=== PATIENT | male | born 1995 | race Two or more races ===

== ENCOUNTER 2018-09-21 02:57 | Emergency (ER) | payer SELFPAY ==
[~2018-09-21] VITALS: Ht 167.6 cm; Wt 77.1 kg
--- NOTE | 2018-09-21 03:00 | NUR ---
PT BIBRA 89 C/O ETOH W/ NAUSEA AND VOMITTING. PT AXO1. RESPIRATIONS EVEN AND UNLABORED. PT PUT ON THE CLIENT SERVICE ADMINISTRATOR AND PULSE OX. EMESIS PRESENT.
[2018-09-21] MEDS ORDERED: ONDANSETRON HCL/PF 4 MG/2 ML VIAL ONE (03:06)
[2018-09-21] MEDS ORDERED: ONDANSETRON HCL/PF 4 MG/2 ML VIAL IV ONE (03:30)
--- NOTE | 2018-09-21 03:55 | NUR ---
PT RESTING IN BED, NAD NOTED. WILL CONTINUE TO MONITOR.
--- NOTE | 2018-09-21 05:35 | NUR ---
Patient discharged to home in stable condition. Written and verbal after care instructions given. Patient verbalizes understanding of instruction. IV removed. Catheter intact and site benign. Pressure and 4x4 applied to site. No bleeding noted.
--- NOTE | 2018-09-21 05:35 | NUR ---
PT AMBULATORY WITH STEADY GAIT.
[2018-09-21 05:36] VITALS: BP 108/75
== END 2018-09-21 05:53 | disposition home or self-care (01) ==
LOC: ER 02:59
DX: F10.129 Alcohol abuse with intoxication, unspecified (principal); Y90.9 Presence of alcohol in blood, level not specified
CPT/HCPCS: 82962; 96374; 99283; J2405